=== PATIENT | female | born 2000 | race American Indian/Alaskan Native ===

== ENCOUNTER 2018-06-24 18:05 | Inpatient (IN) | payer MEDICAID ==
[2018-06-24] MEDS ORDERED: LACTATED RINGERS 500 ML IV ONE (19:27)
[2018-06-24 19:52] LABS: Bacteria,Urine 2+ /HPF (Negative); Bilirubin,Urine NEG (Negative); Blood,Urine NEG (Negative); Color,Urine Yellow (Yellow); Mucus,Urine FEW /HPF
[2018-06-24] MEDS ORDERED: TYLENOL PO PRN (20:03)
[2018-06-24] MEDS: ceFAZolin 2 GM in NACL 0.9% 100 ML IV SCH (22:00)
[2018-06-25] MEDS: PERCOCET 5/325 PO PRN ×3 (04:13→23:14)
[2018-06-25] MEDS: ceFAZolin 2 GM in NACL 0.9% 100 ML IV SCH (05:58)
--- NOTE | 2018-06-25 08:28 | History and Physical Report ---
History of Present Illness Date of examination: 06/25/18 Date of admission: 06/24/18 21:01 Chief complaint: abdominal and back pain History of present illness: This is a 17 yo EDC G P at weeks here for abdominal and back pain. Urine + for elevated WBC. She was evaluated and dx with pyelonephritis and was admitted started on abx. She is a patient of [facility]. Past History Past Medical History: no pertinent history Past Surgical History: no surgical history - Obstetrical History : 1 Medications and Allergies Allergies Allergy/AdvReac Type Severity Reaction Status Date / Time No Known Allergies Allergy Unverified 12/23/13 16:49 Home Medications Medication Instructions Recorded Confirmed Last Taken Type Amoxicillin/K Clav Tab [Augmentin 1 each PO Q12HR #20 tablet 12/23/13 Unknown Rx 500 mg] Promethazine [Phenergan] 25 mg PO BID #20 tab 12/23/13 Unknown Rx Active Meds: Active Medications Acetaminophen (Tylenol) 650 mg PO Q4H PRN PRN Reason: Pain MILD(1-3)/Fever >100.5/HENDRICKS Lactated Ringer's (Lactated Ringers) 1,000 mls @ 125 mls/hr IV DIRECT ERROL Cefazolin Sodium 2 gm/ Sodium (Chloride) 100 mls @ 200 mls/hr IV Q8HR ERROL Last Admin: 06/25/18 05:58 Dose: 200 mls/hr Documented by: Multivitamins/Iron/Calcium ( Vitamin) 1 each PO QDAY ERROL Oxycodone/Acetaminophen (Percocet 5/325) 1 tab PO Q6H PRN PRN Reason: Pain, Moderate (4-6) Last Admin: 06/25/18 04:13 Dose: 1 tab Documented by: Zolpidem Tartrate (Ambien) 10 mg PO QHS PRN PRN Reason: Insomnia - Vital Signs Vital signs: Vital Signs Temp Resp 99.0 F 18 06/24/18 19:30 06/24/18 19:30 Temp Pulse Resp BP Pulse Ox 98.0 F 107 H 18 114/76 06/24/18 21:20 06/24/18 21:20 06/25/18 05:13 06/24/18 21:20 - Physical Exam Breasts: Positive: normal Cardiovascular: Regular rate, Normal S1 Lungs: Positive: Clear to auscultation, Normal air movement Abdomen: Positive: normal appearance, soft, normal bowel sounds. Negative: distention, tenderness, guarding Genitourinary (Female): Positive: normal external genitalia, normal perenium Uterus: Positive: normal size. Negative: tender Anus/Rectum: Positive: normal perianal skin Extremities: Positive: normal Deep Tendon Reflex Grade: Normal +2 - Obstetrical FHR: category 1 Results Abnormal lab results 06/24/18 Range/Units 19:00 Urine WBC (Auto) 142.0 H (0.0-6.0) /HPF All other labs normal. Assessment and Plan A/P HD1 IUP 30 weeks Pyelonephritis rocephin abx close monitor of vs refferral to [facility]
[2018-06-25] MEDS: LACTATED RINGERS 1,000 ML IV SCH ×2 (08:51→20:09)
[2018-06-25 09:40] LABS: Hematocrit 31.9 % (30.3-42.9); Hemoglobin 10.9 gm/dl (10.1-14.3); Mean Corpuscular Volume 77 fl (79-97); Red Blood Count 4.13 M/mm3 (3.65-5.03)
[2018-06-25 09:41] LABS: Basophils % (Auto) 0.3 % (0.0-1.8); Eosinophils % (Auto) 0.2 % (0.0-4.3); Lymphocytes # (Auto) 1.3 K/mm3 (1.2-5.4); Mean Corpuscular HGB Conc 34 % (30-34); Monocytes # (Auto) 0.8 K/mm3 (0.0-0.8); Monocytes % (Auto) 9.1 % (0.0-7.3); Platelet Count 523 K/mm3 (140-440); Red Cell Distribution Width 14.7 % (13.2-15.2)
[2018-06-25] MEDS: PRENATAL VITAMIN PO SCH (10:00)
--- NOTE | 2018-06-25 12:02 | Ultrasound Report ---
ULTRASOUND OB LIMITED History: well being, 30 weeks with pyelonephritis Technique: Transabdominal ultrasound with Doppler interrogation. Gestation: Single Position: Cephalic Amniotic Fluid: Normal HONORIO = 9.0 cm Heart Rate: 127 BPM
--- NOTE | 2018-06-25 12:02 | Ultrasound Report ---
ULTRASOUND BIOPHYSICAL PROFILE: History: well being, 30 weeks with pyelonephritis Technique: Transabdominal ultrasound with Doppler interrogation. 2 - breathing movements 2 - movements 2 - posture and tone 2 - Qualitative amniotic fluid volume 8 - TOTAL SCORE OF POSSIBLE 8 Heart Rate (bpm) 131
--- NOTE | 2018-06-25 13:09 | Consultation ---
History of Present Illness Consult date: 06/25/18 Reason for consult: other (Suspected pyelonephritis) History of present illness: Ms. Doherty is a 17yo, , RAMA 09/01/18, at 30 weeks gestation, presenting to [facility] due to Suspected Pyelonephritis. She reports she was previously diagnosed with urinary tract infection earlier in . She complains of back and left sided pain x 1-2 weeks, but 06/24/18 is when pain became constant and worse in nature. She denies having fevers, pain on urination. UA performed at [facility] showed WBCs. She is currently receiving Ancef 2gms [id number]. She denies PTL symptoms, leaking of fluid, and vaginal bleeding. She admits to positive FM. Past History Past Medical History: no pertinent history Past Surgical History: no surgical history Family/Genetic History: diabetes, hypertension, cancer Social history: no significant social history - Obstetrical History Expected Date of Delivery: 09/01/18 Actual Gestation: 30 Week(s) 2 Day(s) : 1 Para: 0 Medications and Allergies Allergies Allergy/AdvReac Type Severity Reaction Status Date / Time No Known Allergies Allergy Unverified 12/23/13 16:49 Home Medications Medication Instructions Recorded Confirmed Last Taken Type Amoxicillin/K Clav Tab [Augmentin 1 each PO Q12HR #20 tablet 12/23/13 Unknown Rx 500 mg] Promethazine [Phenergan] 25 mg PO BID #20 tab 12/23/13 Unknown Rx Active Meds: Active Medications Acetaminophen (Tylenol) 650 mg PO Q4H PRN PRN Reason: Pain MILD(1-3)/Fever >100.5/HENDRICKS Lactated Ringer's (Lactated Ringers) 1,000 mls @ 125 mls/hr IV DIRECT ERROL Last Admin: 06/25/18 08:51 Dose: 125 mls/hr Documented by: Cefazolin Sodium 2 gm/ Sodium (Chloride) 100 mls @ 200 mls/hr IV Q8HR ERROL Last Admin: 06/25/18 05:58 Dose: 200 mls/hr Documented by: Multivitamins/Iron/Calcium ( Vitamin) 1 each PO QDAY ERROL Oxycodone/Acetaminophen (Percocet 5/325) 1 tab PO Q6H PRN PRN Reason: Pain, Moderate (4-6) Last Admin: 06/25/18 04:13 Dose: 1 tab Documented by: Zolpidem Tartrate (Ambien) 10 mg PO QHS PRN PRN Reason: Insomnia Review of Systems Constitutional: other (denies fever, fatigue, chills) Eyes: deferred Ears, nose, mouth and throat: deferred Cardiovascular: other (denies chest pain, SOB, palpitations) Respiratory: other (denies SOB, wheezing, coughing) Breasts: deferred Gastrointestinal: other (denies constipation, diarrhea, nausea) Genitourinary: other (denies contractions, leaking of fluid, and vaginal bleeding. Admits to back pain) Rectal Exam: deferred Integumentary: deferred Neurological: other (denies headaches, visual disturbances) - Vital Signs Vital signs: Vital Signs Temp Resp 99.0 F 18 06/24/18 19:30 06/24/18 19:30 Temp Pulse Resp BP Pulse Ox 98.0 F 83 18 119/74 06/25/18 08:00 06/25/18 11:07 06/25/18 05:13 06/25/18 11:07 - Physical Exam Breasts: Positive: deferred Cardiovascular: Regular rate, Normal S1, Normal S2, No murmurs Lungs: Positive: Clear to auscultation Abdomen: Positive: soft, other (gravid, nontender) Genitourinary (Female): Positive: other (positive CVA tenderness) Results Result Diagrams: 06/25/18 08:45 Abnormal lab results 06/24/18 06/25/18 Range/Units 19:00 08:45 MCV 77 L (79-97) fl MCH 26 L (28-32) pg Plt Count 523 H (140-440) K/mm3 [place] % (Auto) 9.1 H (0.0-7.3) % Seg Neutrophils % 75.4 H (40.0-70.0) % Urine WBC (Auto) 142.0 H (0.0-6.0) /HPF All other labs normal. Assessment and Plan A- [place] IUP at 30 weeks gestation- RAMA 09/01/18 Suspected Pyelonephritis vs Suspected Kidney Stone Positive CVA tenderness- moreso left side WBC 8.6 Urine WBC 142 Afebrile VSS S/P ultrasound and BPP Current antibiotics- Ancef 2gm Q8hrs P- *For suspected Pyelonephritis, recommend discontinuation of IV Ancef 2gm Q8hrs and start Rocephin 1gm [id number] IV x 48hours as long as patient remains afeb rile. Once patient remains afebrile, convert patient to Augmentin 875 PO BID x 14 days, then continue suppression therapy for the duration of . *With worsening of symptoms, dyspnea/tachypnea, or suspicion of Sepsis, perform Strauss-cultures and Chest xray, ID consult. *Continue IV fluid hydration *Continue monitoring *Monitor vital signs per unit protocol *Please perform urine culture and sensitivity, CBC, and CMP *Consider Renal ultrasound to rule out suspected Kidney Stone Thank you for your consult. With additional questions or concerns, please contact [facility] satellite project site monitor MD Zeinab Grider NP
[2018-06-25] MEDS ORDERED: ROCEPHIN/NS 1 GM/50 ML 1 GM/50 ML BAG IV SCH (16:00)
[2018-06-25] MEDS: AMBIEN PO PRN (23:14)
[2018-06-26] MEDS: LACTATED RINGERS 1,000 ML IV SCH (03:58)
[2018-06-26] MEDS: PERCOCET 5/325 PO PRN ×2 (07:46→14:58)
--- NOTE | 2018-06-26 07:46 | Ultrasound Report ---
FINAL REPORT EXAM: US RENAL BILAT HISTORY: 30 weeks with pyelo COMPARISONS: None. FINDINGS: Transabdominal grayscale and color Doppler ultrasound evaluation of the kidneys and bladder Partially imaged intrauterine in cephalic presentation. cardiac activity is not docum ented on this exam. Mild bilateral hydronephrosis. No echogenic shadowing foci to suggest nephrolithiasis. The right kidn ey measures 11.1 cm and the left kidney measures 12 cm in length. No renal hyperemia or focal fluid c ollection seen in either kidney to suggest abscess formation. Scattered punctate echogenic foci in valeriy th collecting systems. Incidentally noted hypoechoic peripheral round lesion in the spleen measures up to 1.2 cm and is comp atible with benign entities. IMPRESSION: Mild bilateral hydronephrosis without obstructive nephrolithiasis or renal abscess identified.
--- NOTE | 2018-06-26 08:22 | Progress Note ---
Assessment and Plan A/P HD2 IUP 30 weeks Pyelonephritis rocephin abx s/p renal US neg for stones nor abscess with b/l hydronephrosis close monitor of vs appreciate MFM recommendations Subjective - Subjective Date of service: 06/26/18 Principal diagnosis: 30 weeks with pyelonephritis Interval history: This is a 17 yo EDC G P at weeks here for abdominal and back pain. Urine + for elevated WBC. She was evaluated and dx with pyelonephritis and was admitted started on abx. She is a patient of [facility]. Patient reports: movement normal, no new complaints, no loss of fluid, no vaginal bleeding, no contractions Objective - Vital Signs Vital Signs: Vital Signs - 12hr 06/25/18 06/26/18 06/26/18 23:09 07:46 07:49 Pulse Rate 103 H 85 Respiratory 16 Rate Blood Pressure 109/68 90/59 - Exam Breasts: normal Cardiovascular: Regular rate, Normal S1 Lungs: Clear to auscultation, Normal air movement Abdomen: Present: normal appearance, soft, normal bowel sounds. Absent: distention, tenderness, guarding Uterus: Present: normal, firm. Absent: bogginess, tenderness FHR: category 1 Extremities: normal Deep Tendon Reflex Grade: Normal +2 - Labs Labs: Abnormal Labs 06/24/18 06/25/18 19:00 08:45 MCV 77 L MCH 26 L Plt Count 523 H [place] % (Auto) 9.1 H Seg Neutrophils % 75.4 H Urine WBC (Auto) 142.0 H Laboratory Results - last 24 hr 06/25/18 08:45 WBC 8.6 RBC 4.13 Hgb 10.9 Hct 31.9 MCV 77 L MCH 26 L MCHC 34 RDW 14.7 Plt Count 523 H Lymph % (Auto) 15.0 [place] % (Auto) 9.1 H Eos % (Auto) 0.2 Baso % (Auto) 0.3 Lymph # 1.3 [place] # 0.8 Eos # 0.0 Baso # 0.0 Seg Neutrophils % 75.4 H Seg Neutrophils # 6.5
[2018-06-26] MEDS ORDERED: TYLENOL PO PRN (12:38)
[2018-06-26] MEDS ORDERED: ZOFRAN IV PRN (12:38)
[2018-06-26] MEDS ORDERED: BENADRYL PO PRN (12:38)
[2018-06-26] MEDS ORDERED: SENOKOT S PO PRN (12:38)
[2018-06-26] MEDS ORDERED: MILK OF MAGNESIA PO PRN (12:38)
[2018-06-26] MEDS ORDERED: SODIUM CHLORIDE FLUSH SYRINGE 10 ML IV PRN (12:38)
[2018-06-26] MEDS ORDERED: MYLICON PO PRN (12:38)
[2018-06-26] MEDS ORDERED: TUCKS PAD TP PRN (12:38)
[2018-06-26] MEDS ORDERED: DEEP SEA NS PRN (12:38)
[2018-06-26] MEDS ORDERED: ALUM-MAG HYDROX-SIMETH 200-200-20MG/5ML PO PRN (12:38)
[2018-06-26] MEDS ORDERED: COLACE PO PRN (12:38)
[2018-06-26] MEDS ORDERED: SUDAFED PO PRN (12:38)
[2018-06-26] MEDS ORDERED: LACTATED RINGERS 1,000 ML IV SCH (13:00)
[2018-06-26 17:45] LABS: Basophils % (Auto) 0.3 % (0.0-1.8); Eosinophils % (Auto) 0.4 % (0.0-4.3); Hematocrit 30.6 % (30.3-42.9); Hemoglobin 10.6 gm/dl (10.1-14.3); Lymphocytes # (Auto) 1.2 K/mm3 (1.2-5.4); Lymphocytes % (Auto) 17.3 % (13.4-35.0); Mean Corpuscular HGB Conc 35 % (30-34); Mean Corpuscular Volume 76 fl (79-97); Monocytes % (Auto) 13.4 % (0.0-7.3); Platelet Count 545 K/mm3 (140-440); Red Blood Count 4.02 M/mm3 (3.65-5.03)
[2018-06-27] MEDS: AMBIEN PO PRN
[2018-06-27] MEDS: PERCOCET 5/325 PO PRN
[2018-06-27 02:17] LABS: Alanine Aminotransferase 6 units/L (7-56); Albumin 2.6 g/dL (3.9-5); BUN/Creatinine Ratio 8; Blood Urea Nitrogen 3 mg/dL (7-17); Calcium 8.6 mg/dL (8.4-10.2); Hemolysis Index 2
[2018-06-27] MEDS: LACTATED RINGERS 1,000 ML IV SCH ×2 (05:54→08:19)
--- NOTE | 2018-06-27 06:04 | Discharge Summary ---
Providers - Providers Date of Admission: 06/26/18 12:49 Date of discharge: 06/27/18 Attending physician: SOM LUO 06/25/18 08:30 Consult to Physician [CONS] Urgent Comment: Consulting Provider: GERALDINE ZHOU Physician Instructions: Reason For Exam: 30 weeks with Pyelonephritis Primary care physician: SOM LUO Hospitalization Reason for admission: other (pyelonephritis) Hospital course: Patient was admitted for back and abdominal pain. She had >130 WBC in urine. She had US Kidney negative for stone nor abscess. She was on IV abx of ceftriaxone for 48 hrs. She did well without temp spike. She was transitioned to 875mg Augmentin. MFM evaluated patient and recommended plan. She is to continue for duration of . Urine culture grew enterobacter sensitive to abx. Condition at discharge: Good Disposition: DC-01 TO HOME OR SELFCARE Plan - Discharge Medications Prescriptions: Amoxicillin/Potassium Clav [Augmentin 875-125 Tablet] 1 each PO BID #28 tablet - Provider Discharge Summary Activity: routine, no sex for 6 weeks, no strenuous exercise Diet: routine Instructions: routine Additional instructions: [] Smoking cessation referral if applicable(refer to patient education folder for contact #) [] Refer to [facility]'s [facility] Center Booklet Call your doctor immediately for: * Fever > 100.5 * Heavy vaginal bleeding ( >1 pad per hour) * Severe persistent headache * Shortness of breath * Reddened, hot, painful area to leg or breast * Drainage or odor from incision. * Keep incision clean and dry at all times and follow doctor's instructions regarding bathing/showering - Follow up plan Follow up: SOM LUO MD [Primary Care Provider] - 7 Days
[2018-06-27] MEDS ORDERED: AUGMENTIN 875 MG PO SCH (10:00)
[2018-06-27] MEDS ORDERED: PRENATAL VITAMIN PO SCH (10:00)
[2018-06-27] MEDS: PRENATAL VITAMIN PO SCH (10:37)
--- NOTE | 2018-06-27 11:52 | Ultrasound Report ---
ULTRASOUND BIOPHYSICAL PROFILE: History: History of pyelonephritis, 30 weeks Technique: Transabdominal ultrasound with Doppler interrogation. 2 - breathing movements 2 - movements 2 - posture and tone 2 - Qualitative amniotic fluid volume 8 - TOTAL SCORE OF POSSIBLE 8 Heart Rate (bpm) 149
[2018-06-27 12:53] VITALS: BP 99/54
--- NOTE | 2018-06-27 13:42 | Progress Note ---
Assessment and Plan Assessment 1. 30 4/7 weeks, RAMA 09/01/18 2. S/P IV antibiotic 3. Renal ultrasound with mild hydronephrosis; no obstruction or abscess 4. Afebrile for more than 48 hours 5. Currently on Augmentin PO Plan 1. Agree with discharging home today 2. Take Augmentin x 10-12 days 3. Suppressive therapy with Macrobid or Keflex for remainder of for UTI prevention Thank you for giving us the opportunity to participate in the care of Ms Jeb Doherty. Please contact our commercial litigation associate MD for any questions or concerns. Thank you. RAUL Hurst Subjective - Subjective Date of service: 06/27/18 Principal diagnosis: 30 weeks with pyelonephritis Interval history: Ms. Doherty is a 17yo, , RAMA 09/01/18, at 30 4/7 weeks gestation, presented to [facility] due to Suspected Pyelonephritis. She reports she was previously diagnosed with urinary tract infection earlier in . She denies of back and left sided pain at present. S/P IV antibiotic and currently on PO Augmentin. She has been afebrile over 48 hours. Renal ultrasound with mild hydronephrosis but no obstructive nephrolithiosis or abscess. denies LOF, vaginal bleeding, persistent cramping/contractions. Patient reports: movement normal, no new complaints, no loss of fluid, no vaginal bleeding, no contractions Objective - Vital Signs Vital Signs: Vital Signs - 12hr 06/27/18 06/27/18 06/27/18 03:40 03:41 08:25 Temperature 98.0 F 98.0 F Pulse Rate 86 83 Respiratory 16 18 Rate Blood Pressure 106/59 109/60 Blood Pressure 109/60 [Right] 06/27/18 12:52 Temperature 97.3 F L Pulse Rate 85 Respiratory 18 Rate Blood Pressure 99/54 Blood Pressure 99/54 [Right] - Exam Breasts: deferred Cardiovascular: Regular rate Lungs: Normal air movement Abdomen: Present: normal appearance, other (gravid, nontender) Extremities: normal - Labs Labs: Abnormal Labs 06/24/18 06/25/18 06/26/18 19:00 08:45 17:27 MCV 77 L 76 L MCH 26 L 26 L MCHC 35 H Plt Count 523 H 545 H [place] % (Auto) 9.1 H 13.4 H [place] # 1.0 H Seg Neutrophils % 75.4 H Sodium BUN Creatinine ALT Alkaline Phosphatase Albumin Urine WBC (Auto) 142.0 H 06/27/18 01:41 MCV MCH MCHC Plt Count [place] % (Auto) [place] # Seg Neutrophils % Sodium 136 L BUN 3 L Creatinine 0.4 L ALT 6 L Alkaline Phosphatase 144 H Albumin 2.6 L Urine WBC (Auto) Laboratory Results - last 24 hr 06/26/18 06/27/18 17:27 01:41 WBC 7.2 RBC 4.02 Hgb 10.6 Hct 30.6 MCV 76 L MCH 26 L MCHC 35 H RDW 15.0 Plt Count 545 H Lymph % (Auto) 17.3 [place] % (Auto) 13.4 H Eos % (Auto) 0.4 Baso % (Auto) 0.3 Lymph # 1.2 [place] # 1.0 H Eos # 0.0 Baso # 0.0 Seg Neutrophils % 68.6 Seg Neutrophils # 4.9 Sodium 136 L Potassium 3.7 Chloride 101.4 Carbon Dioxide 22 Anion Gap 16 BUN 3 L Creatinine 0.4 L Estimated GFR > 60 BUN/Creatinine Ratio 8 Glucose 79 Calcium 8.6 Total Bilirubin 0.30 AST 10 ALT 6 L Alkaline Phosphatase 144 H Total Protein 6.6 Albumin 2.6 L Albumin/Globulin Ratio 0.7
== END 2018-06-27 14:24 | disposition home or self-care (01) | DRG 781 ==
LOC: TRG 18:05 → LD 21:01 → TRG 21:01 → OBSVTOIN 06-26 12:49
PROVIDERS: ADMIT Obstetrics & Gynecology; ATTEND Obstetrics & Gynecology
DX: O99.89 Other specified diseases and conditions complicating pregnancy, childbirth and the puerperium (principal); N13.30 Unspecified hydronephrosis; Z3A.30 30 weeks gestation of pregnancy; Z83.3 Family history of diabetes mellitus; Z82.49 Family history of ischemic heart disease and other diseases of the circulatory system; Z80.9 Family history of malignant neoplasm, unspecified; Z79.899 Other long term (current) drug therapy
CPT/HCPCS: 36415; 76770; 76815; 76819; 80053; 81001; 85025; 87076; 87086; 87186; 96360; G0378; J0690; J0696; J7120

== ENCOUNTER 2019-03-08 19:22 | Emergency (ER) | payer SELFPAY ==
[2019-03-08 19:32] VITALS: BP 127/86
--- NOTE | 2019-03-08 19:58 | Emergency Department Report ---
Chief Complaint: Sore Throat Stated Complaint: FLU LIKE SYMPTONS Time Seen by Provider: 03/08/19 19:29 - HPI History of Present Illness: This is a 18 y.o. F. that presents to the ER with sore throat, cough, and congestion since last night. Taking OTC cold and flu medication with minimal improvement. Reports discomfort with swallowing. Patient denies any drooling or hoarseness, fever, chills, headache, nausea, vomiting, chest pain or SOB. - ROS Review of Systems: Stated complaint: Sore throat Other details as noted in HPI Constitutional: chills. denies: fever ENT: congestion, throat pain denies: ear pain Respiratory: cough. denies: shortness of breath, wheezing Cardiovascular: denies: chest pain, palpitations Gastrointestinal: denies: abdominal pain, nausea, diarrhea Skin: denies: rash, lesions Neurological: denies: headache, weakness, paresthesias Psychiatric: denies: anxiety, depression - Exam Vital Signs: Vital Signs 03/08/19 03/08/19 19:29 19:34 Temperature 99.1 F Pulse Rate 112 H 99 H Respiratory 18 Rate Blood Pressure 127/86 O2 Sat by Pulse 100 Oximetry Physical Exam: General: Vital signs noted. No distress. Alert and acting appropriately. HEENT: Yes Moist Mucous Membranes, Yes Rhinorrhea (turbinates mildly congested with clear discharge, posterior pharynex erythematous, uvula midline), No Pha ryngeal Exudates, No Conjuctival Injection, No Frontal Tenderness, No Maxillary Tenderness Ear: Neither TM Bulge, Neither TM Erythema, Neither EAC Pain, Neither EAC Discharge Neck: Yes Supple, No Adenopathy Lungs: Yes Good Air Exchange, No Wheezes, No Ronchi, No Stridor, No Cough, No Labored Respirations, No Retractions, No Use of Accessory Muscles, No Other Abnormal Lung Sounds Heart: Yes Regular, No Murmur Abdomen: Yes Normal Bowel Sounds, No Tenderness, No Peritoneal Signs Skin: No Rash, No Edema Neurologic: Alert and oriented, no deficits. MSE screening note: Focused history and physical exam performed. Due to findings the following was ordered: ED Medical Decision Making - Medical Decision Making Patient is stable and was examined by me. Vitals are all stable and patient in no acute distress. Centor score for strep 1 point. Negative fever, chest pain, SOB, n/v/d, palpitations, or headache. Patient will be treated for nasopharyngitis. Start tessalon perles, medrol dose pack, and cetrizine. Patient was instructed to Follow-up with a primary care doctor in 3-5 days or if symptoms worsen and continue return to emergency room as soon as possible. Return to work tomorrow. At time of discharge, the patient does not seem toxic or ill in appearance. Patient agrees to discharge treatment plan of care. No further questions noted by the patient. ED Disposition for MSE Clinical Impression: Nasopharyngitis acute, Cough in adult patient Disposition: TO HOME OR SELFCARE Is pt being admited?: No Condition: Stable Instructions: Cold Symptoms (ED), Upper Respiratory Infection (ED) Prescriptions: methylPREDNISolone [Medrol 4MG DOSEPAK (21 tabs)] 4 mg PO DAILY #1 tab.ds.pk Benzonatate [Tessalon Perles] 100 mg PO Q8HR PRN #30 capsule PRN Reason: Cough Cetirizine HCl [Zyrtec 10mg tab] 10 mg PO DAILY #30 tablet Referrals: [facility] [Outside] - 3-5 Days [facility] [Outside] - 3-5 Days [facility] [Provider Group] - 3-5 Days Forms: Work/School Release Form(ED) Time of Disposition: 20:06
== END 2019-03-08 20:15 | disposition home or self-care (01) ==
LOC: ED 19:22
DX: J00 Acute nasopharyngitis [common cold] (principal)